=== PATIENT | female | born 1935 | race Caucasian/White ===

== ENCOUNTER 2020-09-04 16:42 | Observation (INO) ==
[2020-09-04] MEDS ORDERED: Nitroglycerin 0.4 MG TAB.SUBL SL PRN (16:48)
[2020-09-04] MEDS ORDERED: Aspirin 81 MG TAB.CHEW PO ONE (16:48)
[2020-09-04 17:09] LABS: Basophils % 0.4 %; Eosinophils # 0.4 K/mcL (0.0-0.6); Eosinophils % 3.4 %; Hematocrit 43.6 % (35.3-44.9); Hemoglobin 14.4 g/dL (11.5-15.4); Immature Granulocytes % 0.3 % (0-4); Mean Corpuscular Volume 90.8 fL (83.0-100.0); Mean Platelet Volume 9.2 fL (9.4-12.4); Monocytes # 0.6 K/mcL (0.0-1.3); Monocytes % 5.3 %; Neutrophils # 6.3 K/mcL (1.6-8.9); Platelet Count 330 K/mcL (140-400); Red Cell Distribution Width 13.2 % (11.5-14.5); Segmented Neutrophils % 61.6 %; White Blood Count 10.3 K/mcL (4.3-11.1)
[2020-09-04 17:35] LABS: Albumin 4.2 g/dL (3.5-5.7); Albumin/Globulin Ratio 1.4 (1.1-2.2); Bilirubin,Direct 0.1 mg/dL (0.0-0.2); Bilirubin,Indirect 0.4 mg/dL (0.0-1.0); Bilirubin,Total 0.5 mg/dL (0.3-1.0); Calcium 9.8 mg/dL (8.6-10.3); Potassium 3.2 mEq/L (3.5-5.1); Total Protein 7.2 g/dL (6.4-8.9); Troponin I 0.03 ng/mL (< 0.04)
[2020-09-04] MEDS ORDERED: Potassium Chloride 40 MEQ, Lidocaine 1% 2 ML in 0.9 % Sodium Chloride 500 ML IVPB ONE (17:50)
[2020-09-04] MEDS ORDERED: *HR* HYDROcodone/Acet 5/325 mg TABLET PO PRN (18:07)
[2020-09-04] MEDS ORDERED: Naloxone 0.4 MG/ML INJ IVP PRN (18:07)
[2020-09-04] MEDS ORDERED: Acetaminophen 325 MG TABLET PO PRN (18:07)
[2020-09-04] MEDS ORDERED: Potassium Chloride Elixir 20 MEQ/15 ML UDC PO ONE (18:22)
[2020-09-04 18:33] LABS: Chol/HDL Ratio 4.1 (0-4.9)
[2020-09-04 18:46] LABS: Thyroid Stimulating Hormone 1.691 mcIU/mL (0.340-5.600)
[2020-09-04] MEDS ORDERED: Perflutren Lipid Microsphere 1.3 ML in 0.9 % Sodium Chloride 8.7 ML IVP PRN (18:51)
[2020-09-04] MEDS ORDERED: 0.9 % Sodium Chloride 1,000 ML IVC SCH (19:15)
[2020-09-04 23:53] LABS: Bilirubin,Urine Negative (Negative); Blood,Urine Negative (Negative); Clarity,Urine Clear (Clear); Color,Urine Colorless (Yellow); Glucose,Urine (UA) 50 mg/dL (Normal); Ketones,Urine Negative (Negative); Leukocyte Esterase,Urine Negative (Negative); Mucus,Urine Few per lpf (None-Few); Nitrite,Urine Negative (Negative); PH,Urine 6.5 pH Units (5.0-8.0); Protein,Urine Negative (Neg-Trace); RBC,Urine 0-3 per hpf (0-3); Specific Gravity,Urine 1.013 (1.010-1.025); Squamous Epithelial Cell,Urine Few per hpf (None-Few); Urobilinogen,Urine Normal (Normal)
[2020-09-05 01:11] LABS: Basophils % 0.3 %; Eosinophils # 0.4 K/mcL (0.0-0.6); Eosinophils % 4.3 %; Hematocrit 38.6 % (35.3-44.9); Immature Granulocytes % 0.1 % (0-4); Lymphocytes % 34.7 %; Mean Corpuscular HGB Conc 33.2 g/dL (31.6-35.5); Mean Corpuscular Hemoglobin 30.2 pg (28.0-33.3); Monocytes # 0.6 K/mcL (0.0-1.3); Monocytes % 7.3 %; Neutrophils # 4.6 K/mcL (1.6-8.9); Platelet Count 310 K/mcL (140-400); Red Blood Count 4.24 M/mcL (3.82-4.97); Red Cell Distribution Width 13.2 % (11.5-14.5); Segmented Neutrophils % 53.3 %; White Blood Count 8.6 K/mcL (4.3-11.1)
[2020-09-05 01:12] LABS: Hemoglobin 12.8 g/dL (11.5-15.4)
[2020-09-05 01:18] LABS: INR 1.1; Prothrombin Time 12.2 Seconds (9.4-12.1)
[2020-09-05 01:20] LABS: Activated Partial Thrombo Time 28.8 Seconds (26.0-36.0)
[2020-09-05 01:30] LABS: BUN/Creatinine Ratio 24 (6-26); Blood Urea Nitrogen 25 mg/dL (8-23); Calcium 9.2 mg/dL (8.6-10.3); Carbon Dioxide 26 mEq/L (23-29); Chloride 109 mEq/L (98-107); Glucose 106 mg/dL (70-105); Osmolality,Calculated 303 (280-300); Phosphorous 2.1 mg/dL (2.7-4.5); Potassium 3.1 mEq/L (3.5-5.1); Sodium 144 mEq/L (136-145); eGFR For African Americans > 60 (> 60); eGFR For Non-African Americans 51 (> 60)
[2020-09-05] MEDS ORDERED: Potassium Chloride Elixir 20 MEQ/15 ML UDC PO ONE (02:04)
[2020-09-05] MEDS: *HR* Enoxaparin 40 MG/0.4 ML SYRINGE SQ SCH (05:27)
[2020-09-05] MEDS: PARoxetine 20 MG TABLET PO SCH (08:12)
[2020-09-05] MEDS: NIFEdipine XL (24 HR) 60 MG TAB.ER.24 PO SCH (08:12)
[2020-09-05 10:31] LABS: Estimated Average Glucose 148 mg/dl
[2020-09-05] MEDS ORDERED: Isovue-370 500 ML BOTTLE IVP ONE (10:47)
[2020-09-05] MEDS ORDERED: NIFEdipine XL (24 HR) 30 MG TAB.ER.24 PO ONE (14:53)
[2020-09-06] MEDS: *HR* Enoxaparin 40 MG/0.4 ML SYRINGE SQ SCH (05:13)
[2020-09-06 07:47] VITALS: BP 159/89
[2020-09-06] MEDS: NIFEdipine XL (24 HR) 60 MG TAB.ER.24 PO SCH (08:09)
[2020-09-06] MEDS: PARoxetine 20 MG TABLET PO SCH (08:15)
[2020-09-06 09:33] LABS: BUN/Creatinine Ratio 18 (6-26); Blood Urea Nitrogen 17 mg/dL (8-23); Calcium 8.7 mg/dL (8.6-10.3); Carbon Dioxide 24 mEq/L (23-29); Chloride 108 mEq/L (98-107); Glucose 118 mg/dL (70-105); Osmolality,Calculated 295 (280-300); Potassium 3.3 mEq/L (3.5-5.1); Sodium 141 mEq/L (136-145); eGFR For African Americans > 60 (> 60); eGFR For Non-African Americans 56 (> 60)
== END 2020-09-06 16:37 | disposition home or self-care (01) ==
LOC: EMEROOARM 16:42 → 3BNU 16:42 → SUATTDRO 17:57 → 3BNU 20:16
PROVIDERS: ADMIT Internal Medicine; ATTEND Internal Medicine

== ENCOUNTER 2020-12-29 06:32 | Inpatient (IN) ==
[~2020-12-29 06:32] MED LIST: Ringers Solution, Lactated 1,000 ML IVC SCH
[2020-12-29] MEDS ORDERED: *HR* Rocuronium Bromide 50 MG/5 ML VIAL ONE ×2 (06:56→08:56)
[2020-12-29] MEDS ORDERED: Lidocaine -MPF 2% 2 ML VIAL ONE (06:56)
[2020-12-29] MEDS ORDERED: Dexamethasone 4 MG/ML VIAL ONE (06:56)
[2020-12-29] MEDS ORDERED: *HR* Propofol 200 MG/20 ML VIAL IVP ONE (06:57)
[2020-12-29] MEDS ORDERED: *HR* FentaNYL (PF) 100 MCG/2 ML VIAL ONE (06:57)
[2020-12-29] MEDS ORDERED: Lidocaine HCL 4 ML Topical Solution (Laryng-O-Jet Kit Sterile Pak) TP ONE (07:04)
[2020-12-29] MEDS ORDERED: Bupivacaine 0.5%-Epi 1:200,000 50 ML VIAL ONE (07:28)
[2020-12-29] MEDS ORDERED: levoFLOXacin 500 MG/100 ML 500 MG/100 ML BAG IVPB ONE (07:32)
[2020-12-29] MEDS ORDERED: *HR* HYDROmorphone (PF) 1 MG/ML SYRINGE IVP PRN (08:00)
[2020-12-29] MEDS ORDERED: Ondansetron 4 MG/2 ML VIAL IVP PRN ×2 (08:00→12:17)
[2020-12-29] MEDS ORDERED: *HR* HYDROcodone/Acet 5/325 mg TABLET PO PRN (08:00)
[2020-12-29] MEDS ORDERED: EPHEDrine 50 MG/ML VIAL ONE (08:11)
[2020-12-29] MEDS ORDERED: *HR* EPINEPHrine 1 MG/10 ML SYRINGE ONE (08:36)
[2020-12-29] MEDS ORDERED: *HR* HYDROMORPHONE 2 MG/ML VIAL ONE (09:56)
[2020-12-29] MEDS ORDERED: Sugammadex Sodium 200 MG/2 ML VIAL IV ONE (10:46)
[2020-12-29] MEDS ORDERED: *HR* OxyCODONE Immed Rel 5 MG TABLET PO PRN (12:17)
[2020-12-29] MEDS ORDERED: Naloxone 0.4 MG/ML INJ IVP PRN (12:17)
[2020-12-29] MEDS ORDERED: *HR* Belladonna Alkaloids/Opium 30 MG RECTAL SUPPOSITORY RC PRN (12:17)
[2020-12-29] MEDS ORDERED: Heparin 1,000 UNITS/500 mL 500 ML ONE (12:40)
[2020-12-29] MEDS: 0.9 % Sodium Chloride 1,000 ML IVC SCH (12:48)
[2020-12-29] MEDS: carvediloL 6.25 MG TABLET PO SCH (16:26)
[2020-12-29] MEDS: *HR* HYDROcodone/Acet 5/325 mg TABLET PO PRN (21:55)
[2020-12-30] MEDS: 0.9 % Sodium Chloride 1,000 ML IVC SCH (02:10)
[2020-12-30 05:21] LABS: Basophils % 0.1 %; Eosinophils % 0.2 %; Hematocrit 32.5 % (35.3-44.9); Hemoglobin 10.5 g/dL (11.5-15.4); Immature Granulocytes % 0.3 % (0-4); Lymphocytes % 20.4 %; Mean Corpuscular HGB Conc 32.3 g/dL (31.6-35.5); Mean Corpuscular Hemoglobin 29.8 pg (28.0-33.3); Mean Corpuscular Volume 92.3 fL (83.0-100.0); Mean Platelet Volume 9.5 fL (9.4-12.4); Monocytes # 0.9 K/mcL (0.0-1.3); Monocytes % 9.6 %; Neutrophils # 6.8 K/mcL (1.6-8.9); Platelet Count 235 K/mcL (140-400); Red Blood Count 3.52 M/mcL (3.82-4.97); Red Cell Distribution Width 13.9 % (11.5-14.5); Segmented Neutrophils % 69.4 %; White Blood Count 9.8 K/mcL (4.3-11.1)
[2020-12-30 05:48] LABS: Calcium 8.4 mg/dL (8.6-10.3)
[2020-12-30] MEDS: carvediloL 6.25 MG TABLET PO SCH ×2 (07:37→18:16)
[2020-12-30] MEDS: PARoxetine 20 MG TABLET PO SCH (07:37)
[2020-12-30] MEDS: NIFEdipine XL (24 HR) 30 MG TAB.ER.24 PO SCH (07:37)
[2020-12-30] MEDS: *HR* HYDROcodone/Acet 5/325 mg TABLET PO PRN (18:18)
[2020-12-31] MEDS: carvediloL 6.25 MG TABLET PO SCH ×2 (09:06→17:54)
[2020-12-31] MEDS: NIFEdipine XL (24 HR) 30 MG TAB.ER.24 PO SCH (09:06)
[2020-12-31] MEDS: PARoxetine 20 MG TABLET PO SCH (09:07)
[2021-01-01] MEDS: PARoxetine 20 MG TABLET PO SCH (08:04)
[2021-01-01] MEDS: carvediloL 6.25 MG TABLET PO SCH (08:05)
[2021-01-01] MEDS: NIFEdipine XL (24 HR) 30 MG TAB.ER.24 PO SCH (08:05)
[2021-01-01 10:32] VITALS: BP 117/63
== END 2021-01-01 11:39 | disposition home or self-care (01) | DRG 660 ==
LOC: SAMDAY 06:32 → 3ANU 12:17
PROVIDERS: ADMIT Urology; ATTEND Urology